=== PATIENT | male | born 1990 | race African-American/Black ===

== ENCOUNTER 2020-08-27 10:57 | Emergency (ER) | payer MEDICAID ==
[~2020-08-27] VITALS: Ht 190.5 cm; Wt 81.6 kg
[2020-08-27 11:03] VITALS: BP 127/73
--- NOTE | 2020-08-27 11:08 | NUR ---
Patient ambulated to bed 2. RN evaluating the patient at bedside.
--- NOTE | 2020-08-27 11:13 | NUR ---
Acute onset back pain s/p picking portable machine at work, reaggrevated it picking up ice chest. 12/03 left mid back, +ice packs prior to arrival with minor relief. No meds [employer]. PMH/Meds/Sx: Denies Allergies: Amoxicillin, penicillin
--- NOTE | 2020-08-27 11:22 | NUR ---
Dr. Gresham is evaluating the patient at bedside.
[2020-08-27] MEDS ORDERED: HYDROcodone/APAP 10/325 MG 1 TAB TAB PO STA (11:26)
[2020-08-27] MEDS ORDERED: KETOROLAC 15 MG/ML VIAL IM ONE (11:30)
--- NOTE | 2020-08-27 12:03 | NUR ---
DR DHILLON AT BEDSIDE EVALUATING PATIENT WITH ULTRASOUND
--- NOTE | 2020-08-27 12:15 | NUR ---
Dr. Gresham is reevaluating the patient at bedside.
[2020-08-27] MEDS ORDERED: IBUP-2213 PO (12:27)
[2020-08-27] MEDS ORDERED: CYCL-711 PO (12:27)
[2020-08-27] MEDS ORDERED: ACET-9800 PO (12:27)
--- NOTE | 2020-08-27 12:37 | NUR ---
Patient discharged with v/s stable. Written and verbal after care instructions given and explained. Patient alert, oriented and verbalized understanding of instructions. Ambulatory with steady gait. All questions addressed prior to discharge. ID band removed. Patient advised to follow up with PMD. Rx of flexeril, motrin given. Patient educated on indication of medication including possible reaction and side effects. Opportunity to ask questions provided and answered.
== END 2020-08-27 12:37 | disposition home or self-care (01) ==
LOC: MED 10:57
DX: S39.012A Strain of muscle, fascia and tendon of lower back, initial encounter (principal); Z88.0 Allergy status to penicillin; Z88.1 Allergy status to other antibiotic agents; X50.1XXA Overexertion from prolonged static or awkward postures, initial encounter; Y93.89 Activity, other specified; Y92.89 Other specified places as the place of occurrence of the external cause; Y99.0 Civilian activity done for income or pay
CPT/HCPCS: 81002; 96372; 99283; J1885